=== PATIENT | male | born 1970 | race Caucasian/White ===

== ENCOUNTER 2024-07-01 10:06 | Outpatient (AMB) | payer BC, SELFPAY ==
[2024-07-01 11:00] VITALS: BP 136/80; PULSE 84; O2SAT 99; BMI 32.2
--- NOTE | 2024-07-01 11:00 | A.OFFPC_ITS ---
Vital Signs 07/01/24 11:00 Height 5 ft 8 in Weight 212 lb BMI 32.2 BP 136/80 Blood Pressure Location Rt brachial Position Sitting Pulse 84 Pulse Source Pulse Oximeter Pulse Oximetry (%) 99 Intake Visit Reasons: WOOD GANG SAWYER // Est Care Intake Note: Pt is here today as a New Patient/ PE Allergies No Known Allergies Allergy (Verified 07/01/24 11:10) Medication List - Last Reconciled 07/01/24 by Kelly Calix MD No Known Home Meds Tobacco use date assessed: 07/01/24 Dental Screening Dental Screen Date: 07/01/24 Did you have a dental visit in the last 12 months?: No Did you have a dental problem in the last 6 months where you did not have access to dental care?: No Was dental information given to patient?: Patient has dentist HPI WO[facility] GANG SAWYER // Est Care HPI Details 53-year-old male, new to practice, here to establish care with a new PCP . He has no known medical history, does not take any medication. No complaints at present time . [facility] Medical History (Updated 07/01/24 @ 11:24 by Kelly Calix MD) Obesity (BMI 30.0-34.9) Surgical History (Updated 07/01/24 @ 11:19 by Kelly Calix MD) No pertinent past surgical history Family History (Updated 07/01/24 @ 11:18 by Kelly Calix MD) Maternal Grandmother Diabetes mellitus Mother Essential hypertension Cervical cancer Hyperlipidemia Father Essential hypertension Social History Housing: House Patient Tobacco Use Status: Never used Tobacco e-Cigarette/Vaping Use: Never Used service: No Current occupational status: employed Cognitive needs: No Hearing needs: No Vision needs: No Questionnaire PHQ-9 Over the last 2 weeks, how often have you been bothered by any of the following problems? 1. Little interest or pleasure in doing things: not at all 2. Feeling down, depressed, or hopeless: not at all 3. Trouble falling or staying asleep, or sleeping too much: not at all 4. Feeling tired or having little energy: not at all 5. Poor appetite or overeating: not at all 6. Feeling bad about yourself - or that you are a failure or have let yourself or your family down: not at all 7. Trouble concentrating on things, such as reading the newspaper or watching television: not at all 8. Moving or speaking so slowly that other people could have noticed. Or the opposite - being so fidgety or restless that you have been moving around a lot more than usual: not at all 9. Thoughts that you would be better off or of hurting yourself in some way: not at all Total score: 0 Depression Screening Interpretation: Negative Depression Screening Done: Yes 36805 - PHQ-9 Billing: Yes Source: Developed by Drs. Mukesh Wilson, Miranda Hunter, Cristobal Mukherjee and colleagues, with an educational fannie from [employer]. Thrive Questionnaire Date Thrive assessed: 07/01/24 I am a: Parent/Caregiver What is your living situation today?: I have a steady place to live Within the past 12 months, did the food you bought not last and you didn't have the money to get more?: Never true Within the past 12 months, did you worry whether your food would run out before you got money to buy more?: Never true Do you have trouble paying for medicines?: No Do you have trouble getting transportation to medical appointments?: No Do you have trouble paying your heating and electricity bill?: No Do you have trouble taking care of your child, family member or friend?: No Do you have trouble with day-to-day activities such as bathing, preparing meals, shopping, managing finances, etc.?: No Are you currently unemployed and looking for a job?: No Are you interested in more education?: No Please select the resources that you would like help with: None Currently or been in a relationship where the following occur: No concerns reported THRIVE Score: 0 AUDIT C Alcohol Use Questionnaire (AUDIT-C) 1. How often do you have a drink containing alcohol?: Monthly or less 2. How many drinks containing alcohol do you have on a typical day when you are drinking?: 1 or 2 3. How often do you have six or more drinks on one occasion?: Never Total Score: 1 SINGH-7 AMB Questionnaire SINGH-7 Date SINGH - 7 assessed: 07/01/24 Feeling nervous, anxious, or on edge: 0 = Not at all Not being able to stop or control worryin = Not at all Worrying too much about different things: 0 = Not at all Trouble relaxin = Not at all Being so restless that it is hard to sit still: 0 = Not at all Becoming easily annoyed or irritable: 0 = Not at all Feeling afraid as if something awful might happen: 0 = Not at all Total SINGH-7 score (0-4 normal; 5-9 mild; 10-14 moderate; 15-21 severe): 0 Source: Developed by Drs. Mukesh Wilson, Miranda Hunter, Cristobal Mukherjee and colleagues, with an educational fannie from [employer]. SINGH-7 Assessment Billing SINGH-7 Assessment Tool: SINGH-7 Assessment 42201 Review of Systems Const Denies body aches, Denies fatigue, Denies fever(s), Denies headache(s) and Denies weakness Eyes Denies change in vision, Denies eye discharge and Denies itchy eyes ENT Denies dizziness, Denies headache(s), Denies nasal congestion, Denies nasal discharge and Denies sore throat Card Denies chest pain, Denies lightheadedness, Denies palpitations and Denies dyspnea Resp Denies chest congestion, Denies cough, Denies dyspnea and Denies wheezing GI Denies abdominal pain, Denies change in bowel habits and Denies heartburn Denies hematuria, Denies difficulty urinating, Denies dysuria, Denies urinary frequency and Denies urinary urgency Musc Reports no additional complaints Skin/Breast Denies breast pain, Denies breast mass, Denies lesions and Denies rash Neuro Denies dizziness, Denies headache(s) and Denies weakness Psych Reports no additional complaints Endo Denies fatigue, Denies polydipsia, Denies polyuria and Denies palpitations Lux/Lymph Denies easy bruising Aller/Immun Denies itchy eyes, Denies seasonal rhinorrhea and Denies wheezing Physical exam (Primary Care) Vital Signs: Last Vital Signs Pulse 84 07/01/24 11:00 BP 136/80 07/01/24 11:00 Pulse Ox 99 07/01/24 11:00 BMI result Body Mass Index 32.2 Tobacco/Smoking Status: Tobacco use Status Tobacco use date assessed 07/01/24 07/01/24 11:04 Patient Tobacco Use Status Never used Tobacco 07/01/24 11:04 e-Cigarette/Vaping Use Never Used 07/01/24 11:04 PHQ-9: PHQ-9 Score PHQ-9: Total score 0 07/01/24 11:37 Depression Screening Interpretation: Negative Thrive Assessment: Date of Thrive Assessment Date Thrive assessed 07/01/24 07/01/24 11:04 Currently or been in a relationship where the following occur: No concerns reported Const General: no acute distress and alert Orientation/consciousness: patient oriented x3 HENMT Head: Yes normocephalic and Yes atraumatic Ears: external ears normal, TM's normal bilaterally and EAC's normal General nose exam: Normal external nose present and No nasal discharge present Face and sinus: Yes face symmetric Mouth: Normal oral and palatal mucosa present, oropharynx normal and moist mucous membranes Eyes General: appearance normal, both eyes and all related structures Eyelids: Yes eyelids normal Conjunctivae: conjunctivae normal Sclerae: sclerae normal Pupils: Equal, round and reactive pupils present EOM: EOMs intact bilaterally Neck Neck: Yes full ROM, Yes no lymphadenopathy and Yes supple Chest Chest palpation & inspection: normal inspection of the chest Resp Effort & Inspection: normal respiratory effort and able to speak in complete sentences Auscultation: clear to auscultation bilaterally Cardio Rate: regular rate Rhythm: regular rhythm Heart sounds: S1 normal heart sound present and S2 normal heart sound present GI Palpation (GI): Soft to palpation, nontender, no guarding and no masses Auscultation: normal bowel sounds General: Yes no CVA tenderness Male General Exam: Yes normal external exam and No hernia Back/Spine/Pelvis Back: no CVA tenderness and No back tenderness Skin General skin exam: no rashes or lesions noted Neuro General: patient oriented x3, gait normal, moves all extremities, Normal light touch and pain sensation, no focal motor deficits and CN's II-XI intact bilaterally Cranial nerves: Yes Equal, round and reactive pupils present Cognition (Neuro): normal cognition Gait exam (Neuro): Normal gait present Motor exam (neuro): 5/5 motor strength present throughout Extrem General: Yes normal to inspection, Yes full ROM, Yes no joint enlargement, Yes no pedal edema and Yes normal gait Psych Appearance: grossly normal and well kempt Mental Status: mental status grossly normal Speech and movement: Normal speech and movement present Affect: normal affect Attitude: cooperative Thought process: Normal thought process present Thought content: Normal thought content present Immunizations Boostrix Tdap 2.5 Lf unit-8 mcg-5 Lf/0.5 mL intramuscular syringe Performing Provider: Kelly Calix MD [place] [facility] Administered by: Nga Tirado CMA on 07/01/24 11:37 Dose Route Admin Location Dispensed Lot Number Expiration Date NDC Ophthalmology Surgical Technician 0.5 mL IM Right Deltoid 0.5 mL [id number] 06/16/26 [id number] [employer] VIS Given Date VIS Provided VIS Publication Date 07/01/24 Single Vaccine 21 Eligibility Eligibility Date Funding Source Not [facility] Eligible 07/01/24 Private Coding Level of Care Code New Pt Prev Care 40-64y(91779) Diagnoses Annual visit for general adult medical examination with abnormal findings Z00.01 Obesity (BMI 30.0-34.9) E66.811 Encounter for screening for malignant neoplasm of colon Z12.11 Additional Codes SINGH-7 Assessment Billing - SINGH-7 Assessment Tool: SINGH-7 Assessment 58130 ([id number]) Assessment & Plan Assessment & Plan (1) Annual visit for general adult medical examination with abnormal findings: Code(s): Z00.01 - Encounter for general adult medical examination with abnormal findings Plan: Will check appropriate labs. Recommended dental visit every 6 months and regular eye exams, at least every 2 years. Take adequate calcium in diet and vitamin-D 3 at 2000 IU per cap once a day, in addition to weight-bearing exercises to help maintain good muscle tone and weight control. Instructed to do self-testicular exam check for any mass. Tdap given today. Referred for his initial colon cancer screening (2) Obesity (BMI 30.0-34.9): Code(s): E66.811 - Obesity, class 1 Category: Medical Plan: Discussed need to increase activity and weight reduction. Recommended focusing on improving health instead of dieting. Mediterranean diet is a healthy diet that helps, limit food high in fat, sugar, and calories. Eat slowly, pay attention to portion sizes, plan your meals ahead of time, start regular physical activity, at least 150 minutes of moderate intensity exercise, or 90 minutes per week of vigorous exercise. Keeping a food diary, tracking what you eat and your physical activity can help assess what improvements you can make. There are many health problems associated with being overweight/obese, so it is important to improve your diet and exercise. There are medications and surgical options available, but Lifestyle changes are the 1st step. (3) Encounter for screening for malignant neoplasm of colon: Code(s): Z12.11 - Encounter for screening for malignant neoplasm of colon Plan: Referred to GI Clinic for initial colon cancer screening Orders: Orders Comprehensive Barney. Panel Fast 07/01/24 E66.811 - Obesity, class 1, Z00.01 - Encounter for general adult medical examination with abnormal findings, Z12.5 - Encounter for screening for malignant neoplasm of prostate, Z13.1 - Encounter for screening for diabetes mellitus, Z13.220 - Encounter for screening for lipoid disorders TDaP Immunization 07/01/24 Z23 - Encounter for immunization Lipid Panel 07/01/24 E66.811 - Obesity, class 1, Z00.01 - Encounter for general adult medical examination with abnormal findings, Z12.5 - Encounter for screening for malignant neoplasm of prostate, Z13.1 - Encounter for screening for diabetes mellitus, Z13.220 - Encounter for screening for lipoid disorders Complete Blood Count Auto Diff 07/01/24 E66.811 - Obesity, class 1, Z00.01 - Encounter for general adult medical examination with abnormal findings, Z12.5 - Encounter for screening for malignant neoplasm of prostate, Z13.1 - Encounter for screening for diabetes mellitus, Z13.220 - Encounter for screening for lipoid disorders PSA,Total (Free>4and<10) 07/01/24 E66.811 - Obesity, class 1, Z00.01 - Encounter for general adult medical examination with abnormal findings, Z12.5 - Encounter for screening for malignant neoplasm of prostate, Z13.1 - Encounter for screening for diabetes mellitus, Z13.220 - Encounter for screening for lipoid disorders Referrals Gastroenterology Referral Z12.11 - Encounter for screening for malignant neoplasm of colon
== END 2024-07-01 12:26 | disposition home or self-care (01) ==
PROVIDERS: Visit Provider Internal Medicine
DX: Z00.00 Encounter for general adult medical examination without abnormal findings (principal); E66.811 Obesity, class 1; Z68.32 Body mass index [BMI] 32.0-32.9, adult; Z12.11 Encounter for screening for malignant neoplasm of colon

== ENCOUNTER → 2024-07-01 10:06 | Outpatient (BNVA) | payer BC, SELFPAY | PROVIDERS: Visit Provider Internal Medicine ==

== ENCOUNTER 2024-07-01 11:41 | Outpatient (REF) | payer BC, SELFPAY ==
[2024-07-01 14:10] LABS: Alanine Aminotransferase 67 U/L (0-40); Albumin Level 4.6 g/dL (3.5-5.0); Alkaline Phosphatase 143 U/L (39-117); Anion Gap 12 (12-20); Aspartate Amino Transferase 44 U/L (5-37); Bilirubin Total 0.9 mg/dL (0.0-1.0); Blood Urea Nitrogen 10 mg/dL (9-16); Carbon Dioxide 27 mmol/L (22-29); Chloride 106 mmol/L (96-108); Cholesterol 254 mg/dL (<200); Estimated Glomerular Filt Rate > 60; Glucose Fasting 96 mg/dL (60-99); HDL Cholesterol 54 mg/dL (>40); LDL Cholesterol Calculated 178 mg/dL (<100); Potassium 4.3 mmol/L (3.3-5.1); Sodium 141 mmol/L (135-145); Total Protein 8.7 g/dL (6.5-8.0); Triglycerides 114 mg/dL (<150)
[2024-07-01 14:31] LABS: PSA,Total (Free>4and<10) 0.99 ng/mL (0.00-4.00)
[2024-07-01 16:29] LABS: MANUAL DIFF FLAG NO
[2024-07-01 16:35] LABS: Basophils Percent Auto 0.5 % (0-2); Eosinophils Absolute Auto 0.3 X10*3/uL (0.0-0.4); Eosinophils Percent Auto 4.5 % (0-4); Hematocrit 40.9 % (42.0-52.0); Hemoglobin 13.8 g/dl (14.0-18.0); Imm Gran Abs Auto 0.01 X10*3/uL (0.00-0.03); Imm Gran Pct Auto 0.2 % (0.0-0.4); Lymphocytes Absolute Auto 1.7 X10*3/uL (1.2-4.9); Lymphocytes Percent Auto 30.7 % (20-40); Mean Corpuscular HGB Conc 33.7 g/dl (31.0-36.0); Mean Corpuscular Hemoglobin 30.6 pg (27.0-33.0); Mean Corpuscular Volume 90.7 fL (80.0-98.0); Mean Platelet Volume 9.6 fL (9.4-12.4); Monocytes Absolute Auto 0.4 X10*3/uL (0.1-1.2); Monocytes Percent Auto 7.9 % (2-11); Neutrophils Absolute Auto 3.1 x10*3/uL (2.0-8.3); Neutrophils Percent Auto 56.2 % (45-73); Platelet Count 296 X10*3/uL (160-400); Red Blood Count 4.51 X10*6/uL (4.60-5.80); White Blood Count 5.6 X10*3/uL (4.8-10.8)
== END 2024-07-01 11:42 | disposition home or self-care (01) ==
LOC: HO.HMGCLDS 11:41
PROVIDERS: PCP Internal Medicine; Visit Provider Internal Medicine
DX: Z00.01 Encounter for general adult medical examination with abnormal findings (principal); E66.811 Obesity, class 1; Z13.220 Encounter for screening for lipoid disorders; Z13.1 Encounter for screening for diabetes mellitus; Z12.5 Encounter for screening for malignant neoplasm of prostate; Z23 Encounter for immunization
CPT/HCPCS: 36415; 80053; 80061; 84153; 85025; 90471; 90715; 96127

== ENCOUNTER 2025-04-06 12:31 | Outpatient (AMB) | payer BC, SELFPAY ==
--- NOTE | 2025-04-06 12:38 | MHC.PC.OV ---
Vital Signs 04/06/25 12:39 Height 5 ft 8 in Weight 211 lb BMI 32.1 BP 128/80 Blood Pressure Location Lt brachial Position Sitting Pulse 86 Pulse Source Pulse Oximeter Temp 98.0 F Temp Source Oral Pulse Oximetry (%) 98 Oxygen Delivery Method Room Air Intake Visit Reasons: Follow up Urgent Care/blood in urine, kidney stone Allergies No Known Allergies Allergy (Verified 04/10/25 23:21) Medication List - Last Reconciled 04/06/25 by Kelly Calix MD tamsulosin 0.4 mg PO DAILY Tobacco use date assessed: 04/06/25 Dental Screening Dental Screen Date: 04/06/25 Did you have a dental visit in the last 12 months?: Yes Did you have a dental problem in the last 6 months where you did not have access to dental care?: No Was dental information given to patient?: Patient has dentist HPI Follow up Urgent Care/blood in urine, kidney stone HPI Details - 54-year-old male here today for follow-up after recent walk-in visit where he presented with right-sided abdominal pain and hematuria he described the pain as an intermittent stabbing and tracking down to the groin area. He also noted some pinkish discoloration in his urine at that time. He was advised at the walk-in visit to increase fluid and was started on tamsulosin 0.4 mg daily. Has not had any pain recurrence since his visit from the walk-in clinic. - The pain was intermittent and has not recurred since Friday night.. - No prior history of kidney stones or family history of kidney stones. [facility] Medical History (Updated 04/06/25 @ 12:56 by Kelly Calix MD) Microhematuria Obesity (BMI 30.0-34.9) Surgical History No pertinent past surgical history Family History Maternal Grandmother Diabetes mellitus Mother Essential hypertension Cervical cancer Hyperlipidemia Father Essential hypertension Social History Housing: House Patient Tobacco Use Status: Never used Tobacco e-Cigarette/Vaping Use: Never Used service: No Current occupational status: employed Cognitive needs: No Hearing needs: No Vision needs: No Questionnaire PHQ-9 Over the last 2 weeks, how often have you been bothered by any of the following problems? 1. Little interest or pleasure in doing things: not at all 2. Feeling down, depressed, or hopeless: not at all 3. Trouble falling or staying asleep, or sleeping too much: not at all 4. Feeling tired or having little energy: not at all 5. Poor appetite or overeating: not at all 6. Feeling bad about yourself - or that you are a failure or have let yourself or your family down: not at all 7. Trouble concentrating on things, such as reading the newspaper or watching television: not at all 8. Moving or speaking so slowly that other people could have noticed. Or the opposite - being so fidgety or restless that you have been moving around a lot more than usual: not at all 9. Thoughts that you would be better off or of hurting yourself in some way: not at all Total score: 0 Depression Screening Interpretation: Negative Depression Screening Done: Yes 18909 - PHQ-9 Billing: Yes Source: Developed by Drs. Mukesh Wilson, Miranda Hunter, Cristobal Mukherjee and colleagues, with an educational fannie from [employer]. Thrive Questionnaire Date Thrive assessed: 04/06/25 I am a: Patient What is your living situation today?: I have a steady place to live Within the past 12 months, did the food you bought not last and you didn't have the money to get more?: Never true Within the past 12 months, did you worry whether your food would run out before you got money to buy more?: Never true Do you have trouble paying for medicines?: No Do you have trouble getting transportation to medical appointments?: No Do you have trouble paying your heating and electricity bill?: No Do you have trouble taking care of your child, family member or friend?: No Do you have trouble with day-to-day activities such as bathing, preparing meals, shopping, managing finances, etc.?: No Are you currently unemployed and looking for a job?: No Are you interested in more education?: No Please select the resources that you would like help with: None Currently or been in a relationship where the following occur: No concerns reported THRIVE Score: 0 AUDIT C Alcohol Use Questionnaire (AUDIT-C) 1. How often do you have a drink containing alcohol?: Monthly or less 2. How many drinks containing alcohol do you have on a typical day when you are drinking?: 3 or 4 3. How often do you have six or more drinks on one occasion?: Never Total Score: 2 Score Reviewed/Action Taken: Yes SINGH-7 AMB Questionnaire SINGH-7 Date SINGH - 7 assessed: 04/06/25 Feeling nervous, anxious, or on edge: 0 = Not at all Not being able to stop or control worryin = Not at all Worrying too much about different things: 0 = Not at all Trouble relaxin = Not at all Being so restless that it is hard to sit still: 0 = Not at all Becoming easily annoyed or irritable: 0 = Not at all Feeling afraid as if something awful might happen: 0 = Not at all Total SINGH-7 score (0-4 normal; 5-9 mild; 10-14 moderate; 15-21 severe): 0 Source: Developed by Drs. Mukesh Wilson, Miranda Hunter, Cristobal Mukherjee and colleagues, with an educational fannie from [employer]. SINGH-7 Assessment Billing SINGH-7 Assessment Tool: SINGH-7 Assessment 73039 Review of Systems Const All systems reviewed & are unremarkable except as noted in HPI and below Physical exam (Primary Care) Vital Signs: Last Vital Signs Temp 98.0 F 04/06/25 12:39 Pulse 86 04/06/25 12:39 BP 128/80 04/06/25 12:39 Pulse Ox 98 04/06/25 12:39 Oxygen Delivery Method Room Air 04/06/25 12:39 BMI result Body Mass Index 32.1 Tobacco/Smoking Status: Tobacco use Status Tobacco use date assessed 04/06/25 04/06/25 12:42 Patient Tobacco Use Status Never used Tobacco 04/06/25 12:42 e-Cigarette/Vaping Use Never Used 04/06/25 12:42 PHQ-9: PHQ-9 Score PHQ-9: Total score 0 04/06/25 13:00 Depression Screening Interpretation: Negative Thrive Assessment: Date of Thrive Assessment Date Thrive assessed 04/06/25 04/06/25 12:42 Currently or been in a relationship where the following occur: No concerns reported Const General: no acute distress and alert Orientation/consciousness: patient oriented x3 HENMT Ears: external ears normal General nose exam: Normal external nose present Face and sinus: Yes face symmetric Mouth: moist mucous membranes Eyes General: appearance normal, both eyes and all related structures Neck Neck: Yes full ROM, Yes no lymphadenopathy and Yes supple Resp Effort & Inspection: normal respiratory effort and able to speak in complete sentences Auscultation: clear to auscultation bilaterally Cardio Rate: regular rate Rhythm: regular rhythm Heart sounds: S1 normal heart sound present and S2 normal heart sound present GI Palpation (GI): Soft to palpation, nontender, no guarding and no masses Auscultation: normal bowel sounds General: Yes no CVA tenderness Male General Exam: Yes normal external exam and No hernia Back/Spine/Pelvis Back: no CVA tenderness and No back tenderness Skin General skin exam: no rashes or lesions noted Neuro General: patient oriented x3, gait normal, moves all extremities, Normal light touch and pain sensation and no focal motor deficits Gait exam (Neuro): Normal gait present Extrem General: Yes normal to inspection, Yes full ROM, Yes no pedal edema and Yes normal gait Psych Appearance: grossly normal and well kempt Mental Status: mental status grossly normal Speech and movement: Normal speech and movement present Affect: normal affect Coding Level of Care Code Est Pt Level 4 (09335) Diagnoses Microhematuria R31.29 Right lower quadrant abdominal pain R10.31 Additional Codes SINGH-7 Assessment Billing - SINGH-7 Assessment Tool: SINGH-7 Assessment 25469 ([id number]) PHQ-9 - 59291 - PHQ-9 Billing: Yes ([id number]) Assessment & Plan Assessment & Plan (1) Microhematuria: Code(s): R31.29 - Other microscopic hematuria Category: Medical (2) Right lower quadrant abdominal pain: Code(s): R10.31 - Right lower quadrant pain Plan An ultrasound has been ordered stat to evaluate for possible nephrolithiasis, given the patient's symptoms of right-sided abdominal pain and hematuria. The patient is advised to continue increased fluid intake to facilitate the passage of any potential kidney stones. A referral to urology has been made for further evaluation and management, and the patient is instructed to follow up if no contact is made within 10 days. Patient was informed and verbally consented to the use of an ambient scribe for clinic note documentation during this visit. Orders: Orders US renal BI 04/06/25 R10.31 - Right lower quadrant pain, R31.29 - Other microscopic hematuria Referrals Urology Referral R31.29 - Other microscopic hematuria Medications: New tamsulosin 0.4 mg PO DAILY 30 caps 0RF
[2025-04-06 12:39] VITALS: BP 128/80; PULSE 86; TEMP 36.7; O2SAT 98; BMI 32.1
== END 2025-04-06 13:44 | disposition home or self-care (01) ==
LOC: HO.HMCC 12:32
PROVIDERS: PCP Internal Medicine; Visit Provider Internal Medicine
DX: R31.29 Other microscopic hematuria (principal); R10.31 Right lower quadrant pain

== ENCOUNTER 2025-04-06 13:22 | Outpatient (REF) | payer BC, SELFPAY ==
--- NOTE | ~2025-04-06 | US_ITS ---
EXAMINATION: Ultrasound renal bilaterally. CLINICAL INFORMATION: Microscopic hematuria. COMPARISON: No priors. TECHNIQUE: Real-time ultrasound kidneys using grayscale technique. FINDINGS: Right kidney: 10 x 6 x 6 cm. Volume: 187 cc. Normal echotexture. Normal renal cortical thickness. No hydronephrosis. No gross solid or cystic lesion. Left kidney: 11 x 6 x 6 cm. Volume: 198 cc. Normal echotexture. Normal renal cortical thickness. No hydronephrosis. No gross solid or cystic lesion. US/US renal BI IMPRESSION: No hydronephrosis or gross nephrolithiasis. Normal exam. Electronically signed by: Glenn Johnston MD 04/06/2025 02:34 PM EDT
== END 2025-04-06 13:23 | disposition home or self-care (01) ==
LOC: HO.HMGCX 13:22
PROVIDERS: PCP Internal Medicine; Visit Provider Internal Medicine
DX: R31.29 Other microscopic hematuria (principal); R10.31 Right lower quadrant pain; Z13.31 Encounter for screening for depression; Z13.39 Encounter for screening examination for other mental health and behavioral disorders
CPT/HCPCS: 76775; 96127

== ENCOUNTER → 2025-04-06 13:24 | Outpatient (BNV) | payer BC, SELFPAY | PROVIDERS: PCP Internal Medicine; Visit Provider Radiology Diagnostic Radiology | DX: R31.29 Other microscopic hematuria (principal) | CPT/HCPCS: 76775 ==

== ENCOUNTER 2025-06-01 07:50 | Outpatient (AMB) | payer BC, SELFPAY ==
--- NOTE | 2025-06-01 07:55 | MHC.OFFVIS ---
Intake Visit Reasons: hematuria/ kidney stone Intake Note: New Patient is present for kidney stones and C/O hematuria Urology Rx:none Blood Thinners:none Imaging completed: renal ultrasound 04/06/2025 Smoker: NO Field Technician Required: No Accompanied by: Self / Same As Patient Allergies No Known Allergies Allergy (Verified 06/01/25 08:37) Medication List - Last Reconciled 06/01/25 by XIN Monterroso No Known Home Meds HPI Comments Details: Jerry Hennessy is a pleasant 54-year-old male patient of Dr. Calix. He has a past medical history of obesity and micro hematuria. In discussion with the patient today he reports having recently followed up with his PCP after a visit to the urgent care in [facility] as he had been experiencing right-sided flank pain and abdominal pain. Reports at the urgent care he was diagnosed with nephrolithiasis and given tamsulosin. He reports shortly after his visit to urgent care pain had subsided. He later followed up with his PCP at which time recommendations were made for urology referral for further assessment evaluation. In discussion with the patient today he denies any previous history of nephrolithiasis and or surgical intervention for nephrolithiasis. Recent renal imaging results were reviewed with the patient today. 04/01 bilateral kidneys with no hydronephrosis, nephrolithiasis, and or cystic lesions. We discussed at length potential causes of nephrolithiasis. In office urinalysis results reviewed with the patient today. When asked he currently denies any bothersome urinary issues or concerns. All questions were answered. He otherwise offers no other issues or concerns at this time. [facility] Medical History Microhematuria Obesity (BMI 30.0-34.9) Surgical History No pertinent past surgical history Family History Maternal Grandmother Diabetes mellitus Mother Essential hypertension Cervical cancer Hyperlipidemia Father Essential hypertension Social History Housing: House Patient Tobacco Use Status: Never used Tobacco e-Cigarette/Vaping Use: Never Used service: No Current occupational status: employed Cognitive needs: No Hearing needs: No Vision needs: No Review of Systems Const All systems reviewed & are unremarkable except as noted in HPI and below Physical Exam Const General: cooperative, comfortable, no acute distress, well developed, alert and awake Orientation/consciousness: patient oriented x3 HEENT Head: Yes normal to inspection, Yes normocephalic and Yes atraumatic Ears: hearing grossly normal bilaterally Eyes General: appearance normal, both eyes and all related structures Neck Neck: Yes normal visual inspection and Yes trachea midline Chest Chest palpation & inspection: normal inspection of the chest Resp Effort & Inspection: normal respiratory effort and able to speak in complete sentences Cardio Rate: regular rate GI Inspection: Yes normal to inspection General: Yes no CVA tenderness Back/Spine/Pelvis Back: no CVA tenderness Skin General skin exam: no rashes or lesions noted Neuro General: patient oriented x3 Extrem General: Yes normal to inspection Psych Appearance: grossly normal and well kempt Mental Status: mental status grossly normal Speech and movement: Normal speech and movement present and Clear speech present Affect: normal affect Attitude: cooperative Thought process: Normal thought process present Thought content: Normal thought content present Insight: Fair insight present (Psych) Judgement: Fair judgement present (Psych) Results AMB Urinalysis, Automated UA Leukoctes 0 Opal/uL Last Edit by LACEY Hendrickson on 06/01/25 08:03 UA Nitrite Negative Last Edit by LACEY Hendrickson on 06/01/25 08:03 UA Urobilinogen 0.2 mg/dL Last Edit by LACEY Hendrickson on 06/01/25 08:03 UA Protein 0 mg/dL Last Edit by LACEY Hendrickson on 06/01/25 08:03 UA pH 6.5 Last Edit by LACEY Hendrickson on 06/01/25 08:03 UA Blood 0 Babar/uL Last Edit by LACEY Hendrickson on 06/01/25 08:03 UA Specific [place] 1.015 Last Edit by LACEY Hendrickson on 06/01/25 08:03 UA Ketone Negative Last Edit by ALCEY Hendrickson on 06/01/25 08:03 UA Bilirubin 0 mg/dL Last Edit by LACEY Hendrickson on 06/01/25 08:03 UA Glucose 0 mg/dL Last Edit by LACEY Hendrickson on 06/01/25 08:03 Results Reviewed Results Reviewed: Laboratory Last Values Urine pH (Auto) 6.5 06/01/25 08:03 Specific [place] (Auto) 1.015 06/01/25 08:03 Urine Protein (Auto) 0 mg/dL 06/01/25 08:03 Glucose (UA)(Auto) 0 mg/dL 06/01/25 08:03 Urine Ketones (Auto) Negative 06/01/25 08:03 Urine Blood (Auto) 0 Babar/uL 06/01/25 08:03 Urine Nitrite (Auto) Negative 06/01/25 08:03 Urine Bilirubin (Auto) 0 mg/dL 06/01/25 08:03 Urine Urobilinogen (Auto) 0.2 mg/dL 06/01/25 08:03 Leukocyte Esterase (Auto) 0 Opal/uL 06/01/25 08:03 Date of Service: 04/06/25 Procedure(s): US renal BI FINDINGS: Right kidney: 10 x 6 x 6 cm. Volume: 187 cc. Normal echotexture. Normal renal cortical thickness. No hydronephrosis. No gross solid or cystic lesion. Left kidney: 11 x 6 x 6 cm. Volume: 198 cc. Normal echotexture. Normal renal cortical thickness. No hydronephrosis. No gross solid or cystic lesion. IMPRESSION: No hydronephrosis or gross nephrolithiasis. Normal exam. Assessment & Plan Assessment & Plan (1) Nephrolithiasis: Code(s): N20.0 - Calculus of kidney Category: Medical Plan In office urinalysis results reviewed with the patient today; as noted above. We did discussed potential causes of nephrolithiasis as well as further treatment options and risks and benefits of these treatment options. Recent renal imaging results reviewed with the patient today; as noted above. We discussed at length the importance of adequate hydration relation to nephrolithiasis as well as overall health and well-being. All questions were answered. We discussed adding 1 oz of lemon juice to water daily. Will continue with surveillance monitoring. Will obtain renal ultrasound in 6 months. Follow-up in 6 months with imaging to be completed prior; or sooner with any issues, concerns, and or questions. Orders: Orders US renal BI 6 Months N20.0 - Calculus of kidney AMB Urinalysis Automated Today Z13.9 - Encounter for screening, unspecified Patient Instructions: The patient had an opportunity to ask questions regarding the treatment plan. All questions were answered. Physical exam, labs, and imaging were discussed and reviewed in detail. As well as risks, benefits, and discussion of treatment choices. No major barriers to understanding were identified. The patient expressed understanding and agreement with the above treatment plan. The patient was made aware they should contact our office by phone for worsening of their current condition, the appearance of new symptoms, or with any questions or concerns. Compliance is encouraged with any medications and follow up testing that is ordered. It is a privilege to be allowed the opportunity to participate in? your urological care.? Again, if you have any questions or concerns If you have any questions or concerns please do not hesitate to contact me. The office is [phone]. This note is constructed using voice recognition software. While every effort has been made to ensure accuracy linux consultant errors may have been included. Yours sincerely, XIN Monterroso Coding Level of Care Code New Pt Level 3 (75240) Diagnoses Nephrolithiasis N20.0
== END 2025-06-01 08:39 | disposition home or self-care (01) ==
LOC: HO.HUSH 07:51
PROVIDERS: PCP Internal Medicine; Visit Provider Nurse Practitioner Family
DX: Z13.9 Encounter for screening, unspecified (principal); N20.0 Calculus of kidney
CPT/HCPCS: 99203

== ENCOUNTER → 2025-06-01 07:50 | Outpatient (BNVA) | payer BC, SELFPAY | PROVIDERS: PCP Internal Medicine; Visit Provider Nurse Practitioner Family | DX: N20.0 Calculus of kidney (principal); Z13.9 Encounter for screening, unspecified | CPT/HCPCS: 81003 ==

== ENCOUNTER 2025-07-04 07:47 | Outpatient (AMB) | payer BC, SELFPAY ==
[2025-07-04 08:32] VITALS: BP 110/80; PULSE 78; RESP 16; TEMP 36.8; O2SAT 98; BMI 31.8
--- NOTE | 2025-07-04 08:32 | A.OFFPC_ITS ---
Vital Signs 07/04/25 08:32 Height 5 ft 8 in Weight 209 lb BMI 31.8 BP 110/80 Blood Pressure Location Rt brachial Position Sitting Respiration 16 Pulse 78 Pulse Source Pulse Oximeter Temp 98.2 F Temp Source Oral Pulse Oximetry (%) 98 Oxygen Delivery Method Room Air Intake Visit Reasons: PE Intake Note: Pt is here today for his PE Instructor Modeling Required: No Allergies No Known Allergies Allergy (Verified 07/08/25 23:07) Medication List - Last Reconciled 07/08/25 by Kelly Calix MD No Known Home Meds Tobacco use date assessed: 07/04/25 Dental Screening Dental Screen Date: 07/04/25 Did you have a dental visit in the last 12 months?: No Did you have a dental problem in the last 6 months where you did not have access to dental care?: No Was dental information given to patient?: Patient has dentist HPI PE HPI Details The patient is a 54-year-old male presenting for an annual physical examination The patient is due for a colon cancer screening and prefers to have a colonoscopy rather than a Cologuard test. A prior referral from a year ago has . He reports no family history of colon cancer, though his brother had a couple of polyps removed. Regarding his history of kidney stones, the patient is followed by a urologist and has an upcoming appointment in December. He has had no recent attacks or hematuria, and a recent ultrasound was clear. He follows recommendations to drink plenty of water and one ounce of lemon juice daily to prevent stone formation, attributing past issues to dehydration from sweating while wearing fireproof clothing at work. Past lab work revealed slight anemia, which prompted him to start a multivitamin for men over 50. 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 Previous labs also showed elevated LDL cholesterol and slightly elevated liver enzymes. In response, he has made dietary changes, including eating more whole grains, using olive oil, and havong more fish in his diet, while cutting down on meat. He reports only occasional alcohol consumption, with his last beer being 4-5 months ago. The patient's immunizations are up-to-date for tetanus, having received a Tdap vaccine last year. He is not interested in the flu shot but is considering getting the shingles vaccine. He is not yet due for pneumonia or RSV vaccines. [facility] Medical History (Updated 07/08/25 @ 23:14 by Kelly Calix MD) Anemia Dyslipidemia Microhematuria Obesity (BMI 30.0-34.9) Surgical History No pertinent past surgical history Family History Maternal Grandmother Diabetes mellitus Mother Essential hypertension Cervical cancer Hyperlipidemia Father Essential hypertension Social History Housing: House Patient Tobacco Use Status: Never used Tobacco e-Cigarette/Vaping Use: Never Used service: No Current occupational status: employed Cognitive needs: No Hearing needs: No Vision needs: No Questionnaire PHQ-9 Over the last 2 weeks, how often have you been bothered by any of the following problems? 1. Little interest or pleasure in doing things: not at all 2. Feeling down, depressed, or hopeless: not at all 3. Trouble falling or staying asleep, or sleeping too much: not at all 4. Feeling tired or having little energy: not at all 5. Poor appetite or overeating: not at all 6. Feeling bad about yourself - or that you are a failure or have let yourself or your family down: not at all 7. Trouble concentrating on things, such as reading the newspaper or watching television: not at all 8. Moving or speaking so slowly that other people could have noticed. Or the opposite - being so fidgety or restless that you have been moving around a lot more than usual: not at all 9. Thoughts that you would be better off or of hurting yourself in some way: not at all Total score: 0 Depression Screening Interpretation: Negative Depression Screening Done: Yes Source: Developed by Drs. Mukesh Wilson, Miranda Hunter, Cristobal Mukherjee and colleagues, with an educational fannie from [employer]. Thrive Questionnaire Date Thrive assessed: 04/05/25 I am a: Patient What is your living situation today?: I have a steady place to live Within the past 12 months, did the food you bought not last and you didn't have the money to get more?: Never true Within the past 12 months, did you worry whether your food would run out before you got money to buy more?: Never true Do you have trouble paying for medicines?: No Do you have trouble getting transportation to medical appointments?: No Do you have trouble paying your heating and electricity bill?: No Do you have trouble taking care of your child, family member or friend?: No Do you have trouble with day-to-day activities such as bathing, preparing meals, shopping, managing finances, etc.?: No Are you currently unemployed and looking for a job?: No Are you interested in more education?: No Please select the resources that you would like help with: None Currently or been in a relationship where the following occur: No concerns reported THRIVE Score: 0 AUDIT C Alcohol Use Questionnaire (AUDIT-C) 1. How often do you have a drink containing alcohol?: Monthly or less 2. How many drinks containing alcohol do you have on a typical day when you are drinking?: 3 or 4 3. How often do you have six or more drinks on one occasion?: Never Total Score: 2 SINGH-7 AMB Questionnaire SINGH-7 Date SINGH - 7 assessed: 04/06/25 Feeling nervous, anxious, or on edge: 0 = Not at all Not being able to stop or control worryin = Not at all Worrying too much about different things: 0 = Not at all Trouble relaxin = Not at all Being so restless that it is hard to sit still: 0 = Not at all Becoming easily annoyed or irritable: 0 = Not at all Feeling afraid as if something awful might happen: 0 = Not at all Total SINGH-7 score (0-4 normal; 5-9 mild; 10-14 moderate; 15-21 severe): 0 Source: Developed by Drs. Mukesh Wilson, Miranda Hunter, Cristobal Mukherjee and colleagues, with an educational fannie from [employer]. Review of Systems Const Denies body aches, Denies fatigue, Denies fever(s), Denies headache(s) and Denies weakness Eyes Denies change in vision ENT Denies dizziness, Denies headache(s) and Denies nasal congestion Card Denies chest pain, Denies lightheadedness, Denies palpitations and Denies dyspnea Resp Denies chest congestion, Denies cough, Denies dyspnea and Denies wheezing GI Denies abdominal pain, Denies change in bowel habits and Denies heartburn Denies hematuria, Denies difficulty urinating, Denies dysuria, Denies urinary frequency and Denies urinary urgency Musc Reports no additional complaints Skin/Breast Denies lesions and Denies rash Neuro Denies dizziness, Denies headache(s) and Denies weakness Psych Reports no additional complaints Endo Denies fatigue, Denies polydipsia, Denies polyuria and Denies palpitations Lux/Lymph Denies easy bruising Aller/Immun Denies seasonal rhinorrhea and Denies wheezing Physical exam (Primary Care) Vital Signs: Last Vital Signs Temp 98.2 F 07/04/25 08:32 Pulse 78 07/04/25 08:32 Resp 16 07/04/25 08:32 BP 110/80 07/04/25 08:32 Pulse Ox 98 07/04/25 08:32 Oxygen Delivery Method Room Air 07/04/25 08:32 BMI result Body Mass Index 31.8 Tobacco/Smoking Status: Tobacco use Status Tobacco use date assessed 07/04/25 07/04/25 08:35 Patient Tobacco Use Status Never used Tobacco 07/04/25 08:35 e-Cigarette/Vaping Use Never Used 07/04/25 08:35 PHQ-9: PHQ-9 Score PHQ-9: Total score 0 07/04/25 09:06 Depression Screening Interpretation: Negative Thrive Assessment: Date of Thrive Assessment Date Thrive assessed 04/05/25 07/04/25 08:35 Currently or been in a relationship where the following occur: No concerns reported Advance Care Planning discussion: Completed/Scanned Date of discussion: 07/04/25 Who was present: Patient Forms completed: Health Care Proxy Time spent: 16-45 minutes Actual minutes spent: 15 Const General: no acute distress and alert Orientation/consciousness: patient oriented x3 HENMT Ears: external ears normal General nose exam: Normal external nose present Face and sinus: Yes face symmetric Mouth: moist mucous membranes Eyes General: appearance normal, both eyes and all related structures Neck Neck: Yes full ROM, Yes no lymphadenopathy and Yes supple Chest Chest palpation & inspection: normal inspection of the chest Resp Effort & Inspection: normal respiratory effort and able to speak in complete sentences Auscultation: clear to auscultation bilaterally Cardio Rate: regular rate Rhythm: regular rhythm Heart sounds: S1 normal heart sound present and S2 normal heart sound present GI Palpation (GI): Soft to palpation, nontender, no guarding and no masses Auscultation: normal bowel sounds General: Yes no CVA tenderness Male General Exam: Yes normal external exam and No hernia Back/Spine/Pelvis Back: no CVA tenderness and No back tenderness Skin General skin exam: no rashes or lesions noted Neuro General: patient oriented x3, gait normal, moves all extremities, Normal light touch and pain sensation and no focal motor deficits Gait exam (Neuro): Normal gait present Extrem General: Yes normal to inspection, Yes full ROM, Yes no pedal edema and Yes normal gait Psych Appearance: grossly normal and well kempt Mental Status: mental status grossly normal Speech and movement: Normal speech and movement present Affect: normal affect Coding Level of Care Code Est Pt Prev Care 40-64y(06448) Diagnoses Annual visit for general adult medical examination with abnormal findings Z00. Colon cancer screening Z12.11 Obesity (BMI 30.0-34.9) E66.811 Advance directive discussed with patient Z71.89 Dyslipidemia E78.5 Anemia, unspecified type D64.9 Anemia type: unspecified type Additional Codes Vital Signs *Quality* - Advance Care Planning discussion: Completed/Scanned ([id number]) Vital Signs *Quality* - Time spent: 16-45 minutes ([id number]) Assessment & Plan Assessment & Plan (1) Annual visit for general adult medical examination with abnormal findings: Code(s): Z00.01 - Encounter for general adult medical examination with abnormal findings Plan: Will check appropriate labs. Recommended dental visit every 6 months and regular eye exams, at least every 2 years. Take adequate calcium in diet and vitamin-D 3 at 2000 IU per cap once a day, in addition to weight-bearing exercises to help maintain good muscle tone and weight control. Instructed to do self-testicular exam check for any mass. Referred for colon cancer screening. Up-to-date with Tdap does not want to get a flu vaccine, recommended to get vaccinated against shingles. (2) Colon cancer screening: Code(s): Z12.11 - Encounter for screening for malignant neoplasm of colon Plan: Referred for screening colonoscopy (3) Obesity (BMI 30.0-34.9): Code(s): E66.811 - Obesity, class 1 Category: Medical Plan: Recommended focusing on improving health instead of dieting. Mediterranean diet is a healthy diet that helps, limit food high in fat, sugar, and calories. Eat slowly, pay attention to portion sizes, plan your meals ahead of time, start regular physical activity, at least 150 minutes of moderate intensity exercise, or 90 minutes per week of vigorous exercise. Keeping a food diary, tracking what you eat and your physical activity can help assess what improvements you can make. (4) Advance directive discussed with patient: Code(s): Z71.89 - Other specified counseling Plan: Initiated the conversation about Advanced Directives. Advanced Directives help patients prepare for current and future decisions about their medical treatment and place of care. Discussed with patient that it is a process where a patients current condition and prognosis are reviewed, their wishes for information regarding their illness are elicited, and likely medical dilemmas are presented and options discussed. Healthcare proxy form completed today. The form can be amended as needed, reviewed yearly and make changes as needed (5) Dyslipidemia: Code(s): E78.5 - Hyperlipidemia, unspecified Category: Medical Plan: Fasting lipid panel ordered. Stressed importance of adhering to healthy eating habits and getting regular exercise. (6) Anemia: Code(s): D64.9 - Anemia, unspecified Category: Medical Qualifiers: Anemia type: unspecified type Qualified Code(s): D64.9 - Anemia, unspecified Plan: Ordered CBC and iron profile Orders: Orders Comprehensive [place]. Panel Fast 07/04/25 D64.9 - Anemia, unspecified, E66.811 - Obesity, class 1, E78.5 - Hyperlipidemia, unspecified, R31.29 - Other microscopic hematuria Lipid Panel 07/04/25 D64.9 - Anemia, unspecified, E66.811 - Obesity, class 1, E78.5 - Hyperlipidemia, unspecified, R31.29 - Other microscopic hematuria IRON PROFILE 07/04/25 D64.9 - Anemia, unspecified, E66.811 - Obesity, class 1, E78.5 - Hyperlipidemia, unspecified, R31.29 - Other microscopic hematuria Ferritin 07/04/25 D64.9 - Anemia, unspecified, E66.811 - Obesity, class 1, E78.5 - Hyperlipidemia, unspecified, R31.29 - Other microscopic hematuria Complete Blood Count Auto Diff 07/04/25 D64.9 - Anemia, unspecified, E66.811 - Obesity, class 1, E78.5 - Hyperlipidemia, unspecified, R31.29 - Other microscopic hematuria Referrals Gastroenterology Referral Z12.11 - Encounter for screening for malignant neoplasm of colon
== END 2025-07-04 09:22 | disposition home or self-care (01) ==
LOC: HO.HMCC 07:48
PROVIDERS: PCP Internal Medicine; Visit Provider Internal Medicine
DX: Z00.00 Encounter for general adult medical examination without abnormal findings (principal); E66.811 Obesity, class 1; Z68.31 Body mass index [BMI] 31.0-31.9, adult; Z12.11 Encounter for screening for malignant neoplasm of colon; Z71.89 Other specified counseling; E78.5 Hyperlipidemia, unspecified; D64.9 Anemia, unspecified

== ENCOUNTER 2025-07-04 07:47 | Outpatient (REF) | payer BC, SELFPAY ==
[2025-07-04 10:36] LABS: MANUAL DIFF FLAG NO
[2025-07-04 10:45] LABS: Hematocrit 43.7 % (42.0-52.0); Hemoglobin 14.2 g/dl (14.0-18.0); Imm Gran Abs Auto 0.01 X10*3/uL (0.00-0.03); Imm Gran Pct Auto 0.2 % (0.0-0.4); Lymphocytes Absolute Auto 1.5 X10*3/uL (1.2-4.9); Mean Corpuscular HGB Conc 32.5 g/dl (31.0-36.0); Mean Corpuscular Hemoglobin 30.0 pg (27.0-33.0); Mean Corpuscular Volume 92.2 fL (80.0-98.0); NRBC Abs Auto 0.000 X10*3/uL (0.0-0.012); NRBC Pct Auto 0.0 /100WBC (0.0-0.2); Platelet Count 304 X10*3/uL (160-400); Red Blood Count 4.74 X10*6/uL (4.60-5.80); White Blood Count 5.1 X10*3/uL (4.8-10.8)
[2025-07-04 11:34] LABS: Alanine Aminotransferase 47 U/L (0-40); Albumin Level 4.6 g/dL (3.5-5.0); Alkaline Phosphatase 78 U/L (39-117); Anion Gap 9 (12-20); Aspartate Amino Transferase 37 U/L (5-37); Blood Urea Nitrogen 13 mg/dL (9-16); Calcium 9.4 mg/dL (8.4-10.2); Carbon Dioxide 30 mmol/L (22-29); Chloride 105 mmol/L (96-108); Cholesterol 259 mg/dL (<200); Estimated Glomerular Filt Rate > 60; Ferritin 527 ng/mL (20-250); HDL Cholesterol 56 mg/dL (>40); Iron 122 mcg/dL (45-160); Percent Iron Saturation 43 % (15-50); Potassium 4.4 mmol/L (3.3-5.1); Sodium 140 mmol/L (135-145); Total Iron Binding Capacity 287 mcg/dL (228-428); Total Protein 8.1 g/dL (6.5-8.0); Triglycerides 97 mg/dL (<150); Unsaturated Iron Binding 165 ug/dL
== END 2025-07-04 07:48 | disposition home or self-care (01) ==
LOC: HO.HMGCLDS 07:47
PROVIDERS: PCP Internal Medicine; Visit Provider Internal Medicine
DX: Z00.01 Encounter for general adult medical examination with abnormal findings (principal); E66.811 Obesity, class 1; R31.29 Other microscopic hematuria; E78.5 Hyperlipidemia, unspecified; D64.9 Anemia, unspecified; Z71.89 Other specified counseling; Z68.31 Body mass index [BMI] 31.0-31.9, adult
CPT/HCPCS: 36415; 80053; 80061; 82728; 83540; 85025; 96127